=== PATIENT | female | born 1990 | race Hispanic/Latino ===

== ENCOUNTER 2025-06-16 12:07 | Day surgery (SDC) | payer OTHER, SELFPAY ==
[2025-06-16 12:35] VITALS: BMI 61.2
[2025-06-16] MEDS ORDERED: hydrALAZINE 20 MG/ML VIAL SLOW IVP PRN (13:10)
[2025-06-16 14:45] LABS: Glucose, Urine (Dipstick) Normal (Negative); Leukocyte Negative (Negative); Protein, Urine (Dipstick) Negative (Neg-Trace); Specific Gravity, Urine 1.015 (1.005-1.030)
[2025-06-16 14:52] LABS: Bacteria/HPF 1+ HPF (None Seen); CAUTI Indications for Culture Pregnancy; RBC/HPF None Seen HPF (0-3); WBC/HPF 0-3 HPF (0-3)
[2025-06-16 14:54] LABS: Urine Culture Reflex Yes Yes
== END 2025-06-16 15:30 | disposition home or self-care (01) ==
LOC: CSHLD/OP 12:07
PROVIDERS: ATTEND Family Medicine
DX: O36.8120 Decreased fetal movements, second trimester, not applicable or unspecified (principal); O99.891 Other specified diseases and conditions complicating pregnancy; R50.9 Fever, unspecified; O99.512 Diseases of the respiratory system complicating pregnancy, second trimester; J02.9 Acute pharyngitis, unspecified; O21.2 Late vomiting of pregnancy; O09.522 Supervision of elderly multigravida, second trimester; O13.2 Gestational [pregnancy-induced] hypertension without significant proteinuria, second trimester; Z3A.26 26 weeks gestation of pregnancy; Z79.899 Other long term (current) drug therapy
CPT/HCPCS: 76819; 81001; 87081; 87086; 87400; 87430; 99285